=== PATIENT | female | born 1980 | race Caucasian/White ===

== ENCOUNTER 2021-09-04 17:54 | Emergency (ER) | payer OTHER ==
[~2021-09-04] VITALS: Ht 157.5 cm; Wt 120.0 kg
--- NOTE | 2021-09-04 18:18 | PHYS DOC ---
Past History Additional Past Medical Histor: PTSD, Borderline personality , bi polar Past Surgical History: Cholecystectomy, , Tonsillectomy General Adult EDM: Chief Complaint: NAUSEA/VOMITING/DIARRHEA HPI: HPI: ".. I ve been vomiting for a week now .. at least 7 x day... I have cyclic vomiting.. I ve take oral zofran and compazine .. that usually works.. I had seen my DrBridget Melton.. she says can't do anything for it.. its cyclic vomiting...".. " I ve had this worked up before... but nothing seems the work.. with I got this long .. I come to ER and get fluids.." Patient is a 41 year old female who presents with nausea, vomiting and epigastric pain. Patient has previous diagnosis of cyclic vomiting. Patient has taken oral Compazine and Zofran which she had at home and it has not helped the cyclic vomiting. Patient reportedly had previous work-ups for cyclic vo miting. Patient states she no longer smokes quit approxi-1 month ago. Patient still does use marijuana. Patient denies any history of immunosuppression. No history of trauma. No history of bad food intake. Normally follows with Dr. Harrington in [facility]. Patient estimates she has vomited 7 times a day every day for the past week. Has come in tonight because she feels she is more dehydrated and more tachycardia. Patient gives past medical surgical history of tubal ligation. No recent travel. Patient has completed COVID vaccination x 2, but not completed flu vaccination. Patient does have a past history of PTSD, borderline personality, anxiety, bipolar, atypical seizure activity, morbid obesity, GERD, and tubal ligation. Note pt. lst checked in under the name Nichole Chacko. This conflict was discovered when mother kept asking for her by the name José Antonio. Review of Systems: Review of Systems: Constitutional: Denies fever or chills Eyes: Denies change in visual acuity HENT: Denies nasal congestion or sore throat Respiratory: Denies cough or shortness of breath Cardiovascular: Complains of tachycardia GI: Planes of epigastric abdominal pain, nausea, vomiting,. Denies bloody stools or diarrhea : Denies dysuria Musculoskeletal: Denies back pain or joint pain Integument: Denies rash Neurologic: Denies headache, focal weakness or sensory changes Endocrine: Denies polyuria or polydipsia Lymphatic: Denies swollen glands Psychiatric: Denies depression or anxiety Family History: Family History: Noncontributory to presentation Current Medications: Current Meds: See nursing for home meds Allergies: Allergies: Allergies Uncoded Allergies Type Severity Reaction Last Updated Verified PCN Allergy Unknown 09/04/21 Physical Exam: PE: Constitutional: Moderate acute distress, non-toxic appearance. [] HENT: Normocephalic, atraumatic, bilateral external ears normal, oropharynx dry, no oral exudates, nose normal. [] Eyes: PERRLA, EOMI, conjunctiva normal, no discharge. Glasses Neck: Normal range of motion, no tenderness, supple, no stridor. [] Cardiovascular: Tachycardia heart rate regular rhythm, no murmur []. Bedside monitor shows a sinus tachycardia rhythm Lungs & Thorax: Bilateral breath sounds to apex with scattered wheezes and basilar crackles bilaterally on auscultation [] Abdomen: Bowel sounds normal, soft, no tenderness, no masses, no pulsatile masses. Morbid obesity. Old surgery scars. Skin: Warm, dry, no erythema, no rash. [] Back: No tenderness, no CVA tenderness. [] Extremities: No tenderness, no cyanosis, no clubbing, ROM intact, bilateral ankle edema. [] No cording. Neurologic: Alert and oriented X 3, normal motor function, normal sensory fu nction, no focal deficits noted. [] Psychologic: Affect anxious, judgement normal, mood normal. [] Current Patient Data: Vital Signs: Vital Signs Date Time Temp Pulse Resp B/P (MAP) Pulse Ox O2 Delivery O2 Flow Rate FiO2 09/04/21 18:02 98.2 96 18 97 Room Air EKG: EKG: My interpretation EKG shows a sinus rhythm at 96 bpm. Does have left axis changes as well as right ventricular hypertrophic findings. There is inverted T waves in V12 and 345 and 6. But no contralateral changes noted. This would be an consistent with inferior infarct. Would consider this an abnormal EKG. But suspect some of the findings are most likely old. Time of this EKG is 1804 hrs. [] Radiology/Procedures: Radiology/Procedures: [][address] [address] IMAGING REPORT Signed PATIENT: NICHOLE JULIO ACCOUNT: [id number] : 1980 LOCATION: ER AGE: 41 SEX: F EXAM STATUS: REG ER ORD. PHYSICIAN: MARLENE RYAN MD REASON: cyclic vomiting, X 1 MONTH PROCEDURE: ACUTE ABDOMEN SERIES Three-view acute abdominal series. HISTORY: Cyclic vomiting 3 views were taken for an acute abdominal series. Lungs are clear on the PA chest. Heart is normal in size. There is no pleural effusion. There is no free air on the upright chest. Bowel pattern is unremarkable. There is no small bowel obstruction. There are multiple phleboliths in the pelvis. Patient's had a cholecystectomy. IMPRESSION: 1. No acute chest disease. 2. No bowel obstruction or acute finding in the abdomen. Electronically signed by: Favio Melo MD (09/04/2021 8:14 PM) [facility] DICTATED AND SIGNED BY: FAVIO MELO MD DATE: 09/04/212011 CC: MARLENE RYAN MD; SHAKIRA HARRINGTON ~MTH0 0 Heart Score: C/O Chest Pain: Yes HEART Score for Chest Pain: HEART Score for Chest Pain Response (Comments) Value History Moderately Suspicious 1 ECG Nonspecific Repolarizatio 1 Age < 45 0 Risk Factors 1 or 2 Risk Factors 1 Total 3 Risk Factors: Risk Factors: DM, Current or recent (<one month) smoker, HTN, HLP, family history of CAD, obesity. Risk Scores: Score 0 - 3: 2.5% MACE over next 6 weeks - Discharge Home Score 4 - 6: 20.3% MACE over next 6 weeks - Admit for Clinical Observation Score 7 - 10: 72.7% MACE over next 6 weeks - Early Invasive Strategies Course & Med Decision Making: Course & Med Decision Making Pertinent Labs and Imaging studies reviewed. (See chart for details) Pt refused to give a urine. Currently demanding discharge. Patient stay on a clear fluid diet for the next 2 days. No solids. No milk products. May take Zofran for active vomiting. Follow-up primary care and have them review ED record. Return if any concerns. Encourage pt,. to use her correct name when checking into medical facility makes it difficult to find old records if she gives alternate names on presentation. Impression: 1. Nausea and vomiting-history of cyclic vomiting 2. Dehydration 3. Hx. PTSD 4. Hx. Borderline Personality 5. Hx. of Seizure - Like Activity [] Dragon Disclaimer: Dragon Disclaimer: This electronic medical record was generated, in whole or in part, using a voice recognition dictation system. Departure Departure: Referrals: SHAKIRA HARRINGTON (PCP) Scripts Ondansetron Hcl (ZOFRAN) 4 Mg Tablet 8 MG PO QIDPRN for c, #30 TAB Prov: MARLENE RYAN MD 09/04/21 Randy Disclaimer This chart was dictated in whole or in part using Voice Recognition software in a busy, high-work load, and often noisy Emergency Department environment. It may contain unintended and wholly unrecognized errors or omissions. Dragon Disclaimer This chart was dictated in whole or in part using Voice Recognition software in a busy, high-work load, and often noisy Emergency Department environment. It may contain unintended and wholly unrecognized errors or omissions. MARLENE RYAN MD Sep 04, 2021 18:18
[2021-09-04] MEDS ORDERED: PROCHLORPERAZINE 10 MG/2 ML VIAL. IV ONE (18:30)
[2021-09-04] MEDS ORDERED: FAMOTIDINE 20 MG/2 ML VIAL IVP ONE (18:30)
[2021-09-04] MEDS ORDERED: IV RINGERS SOLUTION,LACTATED 1,000 ML IV SCH (18:30)
[2021-09-04] MEDS ORDERED: ONDANSETRON PF 4 MG/2 ML VIAL. IVP ONE (18:30)
[2021-09-04] MEDS ORDERED: diphenhydrAMINE 50 MG/ML VIAL IVP ONE (18:30)
--- NOTE | 2021-09-04 18:43 | EKG ---
[address] [address] Test Date: 2021-09-04 Test Time: 18:04:23 Pat Name: NICHOLE JULIO Department: Room: Gender: F Staff Psychologist: ELEONORA : 1980 Requested By: MARLENE RYAN Order Number: [id number] Reading MD: Logan Pelaez Measurements Intervals [place] Rate: 96 P: 43 GA: 160 QRS: -11 QRSD: 92 T: -1 QT: 374 QTc: 473 Interpretive Statements SINUS RHYTHM LEFTWARD AXIS T ABNORMALITY IN ANTERIOR LEADS Electronically Signed On 09-05-2021 7:13:51 EMBALMER ASSISTANT by Logan Pelaez
[2021-09-04 19:11] LABS: BASO # 0.1 x10^3/uL (0.0-0.2); BASO % 1 % (0-3); EOS % 0 % (0-3); HEMATOCRIT 44.6 % (36.0-47.0); HEMOGLOBIN 14.8 g/dL (12.0-15.5); LYMPH % 31 % (24-48); MEAN CORPUSCULAR HEMOGLOBIN 25 pg (25-35); MEAN CORPUSCULAR HGB CONC 33 g/dL (31-37); MEAN CORPUSCULAR VOLUME 76 fL (79-100); MONO # 0.8 x10^3/uL (0.0-1.1); MONO % 8 % (0-9); NEUT # 5.7 x10^3uL (1.8-7.7); NEUT % 59 % (31-73); PLATELET COUNT 418 x10^3/uL (140-400); RED BLOOD COUNT 5.84 x10^6/uL (3.50-5.40); RED CELL DISTRIBUTION WIDTH 16.4 % (11.5-14.5); WHITE BLOOD COUNT 9.7 x10^3/uL (4.0-11.0)
[2021-09-04 19:20] LABS: CALCIUM 9.9 mg/dL (8.5-10.1); CREATININE 0.7 mg/dL (0.6-1.0); GFR 91.8; POTASSIUM 3.9 mmol/L (3.5-5.1)
[2021-09-04 19:27] LABS: ALBUMIN 3.4 g/dL (3.4-5.0); DIRECT BILIRUBIN 0.1 mg/dL (0.0-0.2); TOTAL BILIRUBIN 0.7 mg/dL (0.2-1.0); TOTAL PROTEIN 8.5 g/dL (6.4-8.2)
--- NOTE | 2021-09-04 20:16 | RAD ---
Three-view acute abdominal series. HISTORY: Cyclic vomiting 3 views were taken for an acute abdominal series. Lungs are clear on the PA chest. Heart is normal in size. There is no pleural effusion. There is no free air on the upright chest. Bowel pattern is unremarkable. There is no small bowel obs truction. There are multiple phleboliths in the pelvis. Patient's had a cholecystectomy. IMPRESSION: 1. No acute chest disease. 2. No bowel obstruction or acute finding in the abdomen. Electronically signed by: Favio Melo MD (09/04/2021 8:14 PM) [facility]
[2021-09-04 21:29] VITALS: BP 130/71
[2021-09-04] MEDS ORDERED: IV RINGERS SOLUTION,LACTATED 1,000 ML IV ONE (21:45)
[2021-09-04] MEDS ORDERED: ONDA4TAB7 PO (22:52)
== END 2021-09-04 23:03 | disposition home or self-care (01) ==
LOC: ER 17:54
DX: E86.0 Dehydration (principal); R56.9 Unspecified convulsions; F60.3 Borderline personality disorder; F43.10 Post-traumatic stress disorder, unspecified; Z90.49 Acquired absence of other specified parts of digestive tract
CPT/HCPCS: 74022; 80048; 80076; 82550; 83690; 84484; 85025; 85610; 85730; 86705; 86709; 86803; 87340; 93005; 96361; 96374; 96375; 99285; J0780; J1200; J2405; J3490; J7120